=== PATIENT | female | born 1945 | race Caucasian/White ===

== ENCOUNTER → 2019-10-21 | Outpatient (CLI) | payer MEDICARE ==
[2019-10-22 15:09] LABS: Adenovirus F 40/41 Not Detected (NOT DETECT); Astrovirus Not Detected (NOT DETECT); Campylobacter Sp Not Detected (NOT DETECT); Cryptosporidium Not Detected (NOT DETECT); Cyclospora Cayetanensis Not Detected (NOT DETECT); E. Coli O157 Not Detected (NOT DETECT); Entamoeba Histolytica Not Detected (NOT DETECT); Enteroaggregative E. coli-EAEC Not Detected (NOT DETECT); Enteropathogenic E. coli-EPEC Not Detected (NOT DETECT); Enterotoxigenic E. coli-ETEC Not Detected (NOT DETECT); Giardia Lamblia Not Detected (NOT DETECT); Norovirus GI/GII Not Detected (NOT DETECT); Plesiomonas Shigelloides Not Detected (NOT DETECT); Rotavirus A Not Detected (NOT DETECT); Salmonella Sp Not Detected (NOT DETECT); Sapovirus Not Detected (NOT DETECT); Shiga Toxin-prod E. coli-STEC Not Detected (NOT DETECT); Shigella/Enteroin E. coli-EIEC Not Detected (NOT DETECT); Vibrio Cholerae Not Detected (NOT DETECT); Vibrio Sp Not Detected (NOT DETECT); Yersinia Enterocolitica Not Detected (NOT DETECT)
== END | disposition home or self-care (01) ==
LOC: LAB SHORT 19:00 → LAB 19:00 → LAB SHORT 10-22 11:01
PROVIDERS: Nurse Practitioner Family
DX: K52.9 Noninfective gastroenteritis and colitis, unspecified (principal); R10.9 Unspecified abdominal pain
CPT/HCPCS: 0097U

== ENCOUNTER → 2022-10-14 | Outpatient (CLI) | payer MEDICARE | LOC: LAB SHORT 08:45 → LAB 08:45 | DX: R30.0 Dysuria (principal) | CPT/HCPCS: 87086 ==

== ENCOUNTER → 2022-10-18 | Outpatient (CLI) | payer MEDICARE | END | disposition home or self-care (01) | LOC: LAB SHORT 13:50 → LAB 13:50 | DX: N39.0 Urinary tract infection, site not specified (principal) | CPT/HCPCS: 87086 ==

== ENCOUNTER → 2023-02-11 | Outpatient (CLI) | payer MEDICARE ==
[2023-02-11 20:02] LABS: Campylobacter Sp Not Detected (NOT DETECT)
[2023-02-11 20:03] LABS: Adenovirus F 40/41 Not Detected (NOT DETECT); Astrovirus Not Detected (NOT DETECT); Cryptosporidium Not Detected (NOT DETECT); Cyclospora Cayetanensis Not Detected (NOT DETECT); E. Coli O157 Not Detected (NOT DETECT); Entamoeba Histolytica Not Detected (NOT DETECT); Enteroaggregative E. coli-EAEC Not Detected (NOT DETECT); Enteropathogenic E. coli-EPEC Not Detected (NOT DETECT); Enterotoxigenic E. coli-ETEC Not Detected (NOT DETECT); Giardia Lamblia Not Detected (NOT DETECT); Norovirus GI/GII Not Detected (NOT DETECT); Plesiomonas Shigelloides Not Detected (NOT DETECT); Rotavirus A Not Detected (NOT DETECT); Salmonella Sp Not Detected (NOT DETECT); Sapovirus Not Detected (NOT DETECT); Shiga Toxin-prod E. coli-STEC Not Detected (NOT DETECT); Shigella/Enteroin E. coli-EIEC Not Detected (NOT DETECT); Vibrio Cholerae Not Detected (NOT DETECT); Vibrio Sp Not Detected (NOT DETECT); Yersinia Enterocolitica Not Detected (NOT DETECT)
== END ==
LOC: LAB SHORT 12:58 → LAB 12:58 → LAB FUT 02-01 10:25
PROVIDERS: Internal Medicine Gastroenterology
DX: R19.7 Diarrhea, unspecified (principal)
CPT/HCPCS: 87507

== ENCOUNTER 2023-06-04 13:04 | Emergency (ER) | payer MEDICARE ==
[~2023-06-04] VITALS: Ht 167.6 cm; Wt 64.9 kg
[~2023-06-04 13:04] MED LIST: ATOR20 PO; ERGO400 PO; Ginger250 MG PO; Lisinopril-Hct1 EAC4 PO; METF500 PO; OMEP20ER PO; TURMERIC500 M2 PO
[2023-06-04 13:36] LABS: BASOPHILS ABSOLUTE AUTO 0.01 K/mm3 (0.00-0.23); BASOPHILS PERCENT AUTO 0 % (0-2); EOSINOPHILS ABSOLUTE AUTO 0.06 K/mm3 (0.00-0.68); EOSINOPHILS PERCENT AUTO 1 % (0-6); Hematocrit 37.9 % (33.0-51.0); Hemoglobin 13.2 g/dL (11.5-16.0); IMMATURE GRAN ABSOLUTE AUTO 0.04 K/mm3 (0.00-0.10); IMMATURE GRAN PERCENT AUTO 1 % (0-1); LYMPHOCYTES ABSOLUTE AUTO 0.98 K/mm3 (0.84-5.20); LYMPHOCYTES PERCENT AUTO 18 % (21-46); MONOCYTES ABSOLUTE AUTO 0.48 K/mm3 (0.16-1.47); MONOCYTES PERCENT AUTO 9 % (4-13); Mean Corpuscular HGB 31.9 pg (26.0-34.0); Mean Corpuscular HGB Conc 34.8 g/dL (31.5-36.5); Mean Corpuscular Volume 92 fL (80-100); Mean Platelet Volume 9.6 fL (9.1-12.4); NEUTROPHILS ABSOLUTE AUTO 4.01 K/mm3 (1.96-9.15); NEUTROPHILS PERCENT AUTO 72 % (41-73); Platelet Count 251 K/mm3 (150-400); RDW Coefficient Variation 15.2 % (11.7-14.2); RDW Standard Deviation 43.8 fL (35.1-46.3); Red Blood Cell Count 4.14 M/mm3 (3.80-5.20); White Blood Cell Count 5.58 K/mm3 (4.00-11.30)
[2023-06-04 14:19] LABS: Albumin/Globulin Ratio 1.3 (0.8-1.8); Bilirubin, Total 0.9 mg/dL (0.1-1.0); Bun/Creatinine Ratio 16.4 (12.0-20.0); Calcium, Blood 8.1 mg/dL (8.5-10.1); Creatinine, Blood 1.22 mg/dL (0.40-1.00); Potassium, Blood 2.4 mmol/L (3.5-5.5)
[2023-06-04 15:58] LABS: Source, Urine Clean Catch
[2023-06-04 16:02] LABS: Appearance, Urine Hazy (Clear); Bilirubin, Urine Neg (Neg); Blood, Urine Neg (Neg); Color, Urine Yellow (P-Yellow); Glucose Qualitative, Urine Neg (Neg); Ketones, Urine Neg (Neg); Leukocyte Esterase, Urine 2+ (Neg); Nitrite, Urine Neg (Neg); Protein, Urine Neg (Neg); Specific Gravity, Urine 1.015 (1.003-1.022); Urobilinogen, Urine NORM (Normal)
[2023-06-04 17:06] LABS: Bacteria Many /hpf; Mucus Light (0-Heavy); Red Blood Cells, Urine 0-2 /hpf (0-2); Squamous Epithelial Cells Rare /hpf (Few); Transitional Epithelial Cells Few /hpf (0-Rare); White Blood Cells, Urine 25-50 /hpf (0-5)
[2023-06-04 18:34] VITALS: BP 128/63
[2023-06-04] MEDS ORDERED: Bactrim Ds Tab1 EACH PO (19:06)
[2023-06-04 19:33] LABS: Magnesium, Blood 1.4 mg/dL (1.6-2.4)
== END 2023-06-04 20:43 | disposition home or self-care (01) ==
LOC: ER 13:04
PROVIDERS: Physician Assistant; Student in an Organized Health Care Education/Training Program
DX: E87.6 Hypokalemia (principal); E83.42 Hypomagnesemia; N39.0 Urinary tract infection, site not specified; C20 Malignant neoplasm of rectum; Z79.84 Long term (current) use of oral hypoglycemic drugs; Z79.899 Other long term (current) drug therapy
CPT/HCPCS: 70450; 80053; 81001; 83735; 84132; 84484; 85025; 87086; 93005; 93010; 96365; 96366; 96367; 96368; 99284-25; J0696; J3475; J3480; J7030; J7050

== ENCOUNTER 2023-06-13 19:17 | Observation (INO) | payer MEDICARE ==
[~2023-06-13] VITALS: Ht 167.6 cm; Wt 62.5 kg
[~2023-06-13 19:17] MED LIST changes: +Bactrim Ds Tab1 EACH PO
[2023-06-13] MEDS ORDERED: ONDA8 PO (20:09)
[2023-06-13 20:27] LABS: BASOPHILS ABSOLUTE AUTO 0.01 K/mm3 (0.00-0.23); BASOPHILS PERCENT AUTO 0 % (0-2); EOSINOPHILS PERCENT AUTO 0 % (0-6); Hemoglobin 12.6 g/dL (11.5-16.0); IMMATURE GRAN ABSOLUTE AUTO 0.04 K/mm3 (0.00-0.10); IMMATURE GRAN PERCENT AUTO 1 % (0-1); LYMPHOCYTES ABSOLUTE AUTO 0.24 K/mm3 (0.84-5.20); LYMPHOCYTES PERCENT AUTO 6 % (21-46); MONOCYTES ABSOLUTE AUTO 0.32 K/mm3 (0.16-1.47); MONOCYTES PERCENT AUTO 8 % (4-13); Mean Corpuscular HGB 33.1 pg (26.0-34.0); Mean Corpuscular Volume 92 fL (80-100); Mean Platelet Volume 9.3 fL (9.1-12.4); NEUTROPHILS ABSOLUTE AUTO 3.37 K/mm3 (1.96-9.15); NEUTROPHILS PERCENT AUTO 85 % (41-73); Platelet Count 216 K/mm3 (150-400); RDW Coefficient Variation 16.8 % (11.7-14.2); RDW Standard Deviation 47.7 fL (35.1-46.3); Red Blood Cell Count 3.81 M/mm3 (3.80-5.20); White Blood Cell Count 3.98 K/mm3 (4.00-11.30)
[2023-06-13 20:51] LABS: Albumin, Blood 2.9 g/dL (3.4-5.0); Bilirubin, Total 1.1 mg/dL (0.1-1.0); Bun/Creatinine Ratio 20.3 (12.0-20.0); Calcium, Blood 9.7 mg/dL (8.5-10.1); Creatinine, Blood 1.28 mg/dL (0.40-1.00); Globulin, Blood 2.9 g/dL (2.2-4.0); Magnesium, Blood 1.5 mg/dL (1.6-2.4); Potassium, Blood 3.6 mmol/L (3.5-5.5); Total Protein, Blood 5.8 g/dL (6.4-8.2)
[2023-06-13 21:02] LABS: Influenza A, PCR NEGATIVE (NEGATIVE); Influenza B, PCR NEGATIVE (NEGATIVE); Resp Syncytial Virus, PCR NEGATIVE (NEGATIVE); SARS-Cov-2 (COVID-19) PCR, MMC NEGATIVE (NEGATIVE)
[2023-06-14 01:48] VITALS: BP 146/91
[2023-06-14 05:37] LABS: Hematocrit 29.6 % (33.0-51.0); Hemoglobin 10.4 g/dL (11.5-16.0); Mean Corpuscular HGB 32.9 pg (26.0-34.0); Mean Corpuscular HGB Conc 35.1 g/dL (31.5-36.5); Mean Corpuscular Volume 94 fL (80-100); Mean Platelet Volume 9.5 fL (9.1-12.4); Platelet Count 178 K/mm3 (150-400); RDW Coefficient Variation 17.1 % (11.7-14.2); RDW Standard Deviation 50.1 fL (35.1-46.3); Red Blood Cell Count 3.16 M/mm3 (3.80-5.20); White Blood Cell Count 2.83 K/mm3 (4.00-11.30)
[2023-06-14 06:39] LABS: Bun/Creatinine Ratio 19.6 (12.0-20.0); Calcium, Blood 8.1 mg/dL (8.5-10.1); Creatinine, Blood 1.02 mg/dL (0.40-1.00); Magnesium, Blood 2.3 mg/dL (1.6-2.4)
--- NOTE | 2023-06-14 06:41 | NUR ---
Shift Summary Pt came to the ED d/t N/V, admitted for dx QT elongation. Pt has had nausea since arriving to this unit. No chest pain and no event calls from telemetry. Pt is AOx4 and a 1 SBA w/ no history of falls. Pt recieved 1 bag of magnesium in ED and 1 more bag earlier this AM on this unit.
[2023-06-14 06:48] LABS: BASOPHILS PERCENT MAN 0 % (0-2); EOSINOPHILS PERCENT MAN 0 % (0-6); LYMPHOCYTES ABSOLUTE MAN 0.33 K/mm3 (0.84-5.20); LYMPHOCYTES PERCENT MAN 12 % (21-46); MONOCYTES ABSOLUTE MAN 0.25 K/mm3 (0.16-1.47); MONOCYTES PERCENT MAN 9 % (4-13); NEUTROPHILS ABSOLUTE MAN 2.23 K/mm3 (1.96-9.15); SEG NEUTROPHILS PERCENT MAN 79 % (41-73); TOTAL CELLS COUNTED 100
[2023-06-14 08:10] VITALS: BP 138/69
[2023-06-14 14:27] VITALS: BP 143/68
--- NOTE | 2023-06-14 16:01 | NUR ---
SHIFT SUMMARY: CESAR IS A&OX4. VSS, NO ACUTE EVENTS THIS SHIFT. PT WAS FREE FROM NAUSEA AT THE BEGINNING OF THE SHIFT AND TOLERATED BREAKFAST WELL, BUT HAS REPORTED NAUSEA THIS AFTERNOON. DISCUSSED WITH HOSPITALIST, MEDICATED PER MAR. PT IS INDEPENDENT IN THE ROOM, USUALLY EMPTIES HER OSTOMY INDEPENDENTLY, POWERGLIDE TO RODRIGO PATENT. PT DOES HAVE A MEDIPORT WHICH IS NOT ACCESSED. PT IS CONTINENT OF BLADDER. SHE IS LYING IN BED WITH THE CALL LIGHT IN REACH. REPORT WAS GIVEN TO RN ASSUMING CARE.
--- NOTE | 2023-06-14 16:21 | NUR ---
RECEIVED REPORT FROM CHANDLER BETTS. ASSUMED CARE OF PT TIL END OF SHIFT.
[2023-06-14 18:56] LABS: Bun/Creatinine Ratio 19.8 (12.0-20.0); Calcium, Blood 7.7 mg/dL (8.5-10.1); Creatinine, Blood 0.86 mg/dL (0.40-1.00); Potassium, Blood 3.4 mmol/L (3.5-5.5)
[2023-06-14 19:46] VITALS: BP 113/62
[2023-06-15 03:52] VITALS: BP 112/70
[2023-06-15 07:18] LABS: BASOPHILS PERCENT AUTO 0 % (0-2); EOSINOPHILS PERCENT AUTO 3 % (0-6); Hemoglobin 10.5 g/dL (11.5-16.0); IMMATURE GRAN ABSOLUTE AUTO 0.03 K/mm3 (0.00-0.10); IMMATURE GRAN PERCENT AUTO 1 % (0-1); LYMPHOCYTES ABSOLUTE AUTO 0.29 K/mm3 (0.84-5.20); LYMPHOCYTES PERCENT AUTO 8 % (21-46); MONOCYTES ABSOLUTE AUTO 0.41 K/mm3 (0.16-1.47); MONOCYTES PERCENT AUTO 11 % (4-13); Mean Corpuscular HGB 32.9 pg (26.0-34.0); Mean Corpuscular Volume 94 fL (80-100); Mean Platelet Volume 9.5 fL (9.1-12.4); NEUTROPHILS ABSOLUTE AUTO 3.01 K/mm3 (1.96-9.15); NEUTROPHILS PERCENT AUTO 78 % (41-73); Platelet Count 185 K/mm3 (150-400); RDW Coefficient Variation 17.1 % (11.7-14.2); RDW Standard Deviation 49.4 fL (35.1-46.3); Red Blood Cell Count 3.19 M/mm3 (3.80-5.20); White Blood Cell Count 3.84 K/mm3 (4.00-11.30)
--- NOTE | 2023-06-15 07:29 | NUR ---
Shift Summary Pt had been feeling nauteous all day after eating breakfast. She stated that one dose of Marinol she recieved and the 0.5mg IV ativan she recieved did not help. I gave her 1 MG IV Ativan for nausea at 2330 which allowed her to sleep until morning, and when she woke up she stated her nausea was gone. Ostomy emptied PRN, AOx4, 1 SBA.
[2023-06-15 07:35] LABS: Albumin, Blood 2.1 g/dL (3.4-5.0); Bilirubin, Total 0.9 mg/dL (0.1-1.0); Bun/Creatinine Ratio 18.9 (12.0-20.0); Calcium, Blood 7.8 mg/dL (8.5-10.1); Creatinine, Blood 0.9 mg/dL (0.40-1.00); Globulin, Blood 2.1 g/dL (2.2-4.0); Potassium, Blood 3.6 mmol/L (3.5-5.5); Total Protein, Blood 4.2 g/dL (6.4-8.2)
[2023-06-15 07:39] VITALS: BP 119/64
[2023-06-15] MEDS ORDERED: Prinivil10 MG PO (12:51)
--- NOTE | 2023-06-15 13:47 | NUR ---
SHIFT/DISCHARGE SUMMARY: PATIENT A/OX4. ANSWER TO QUESTIONS APPROPRIATELY AND ABLE TO MAKE NEEDS KNOWN. PATIENT DENIES CP/PRESSURE, SOB, N/V DIZZINESS AND GENERALIZED PAIN. PATIENT ON TELE, SR HR IN THE 80'S BPM c OCCASIONAL PVC. PATIENT RECEIVED OT DOSE OF MAG SULFATE AND SCHEDULED MEDS PER EMAR. BS 153 BEFORE BREAKFAST AND 208 BEFORE LUNCH, RECEIVED INSULIN COVERAGE PER EMAR. PATIENT CONTINENCE OF BLADDER, AMBULATES TO BATHROOM c SBA/FWW. CHRONIC COLOSTOMY, DRAINING LIQUID BROWN STOOL AND COLOSTOMY APPLIANCE WAS CHANGED THIS AM. VITAL SIGNS REVIEWED. POWERGLIDE TO RODRIGO HONG'D. PATIENT DISCHARGE HOME. DISCHARGE INSTRUCTIONS PACKET GIVEN TO PATIENT. EDUCATE PATIENT AND SPOUSE AT BEDSIDE REGARDING ADMITTING DX'S OF PROLONG QT INTERVAL, S/S, TX, MEDICATIONS, SELF CARE, AND TO FOLLOW c DR. WALDROP (ONCOLOGIST) WELL HER PCP. PATIENT/SPOUSE VERBALIZED UNDERSTANDING AND NO FURTHER QUESTIONS. RX WAS FAXED TO PATIENT PREFERRED [facility]ARMAC[facility] ([facility] ALL PATIENT PERSONAL BELONGINGS WERE SENT HOME c THE PATIENT. PATIENT LEFT THE ROOM AT 1342 AND WAS TRANSPORTED VIA WHEELCHAIR BY [facility] TO PATIENT ENTRANCE.
== END 2023-06-15 13:40 | disposition home or self-care (01) ==
LOC: ER 19:17 → MEDS 19:18 → ERHOLD 19:18 → MEDS 06-14 01:43
PROVIDERS: Student in an Organized Health Care Education/Training Program; ADMIT Internal Medicine
DX: I45.81 Long QT syndrome (principal); R11.2 Nausea with vomiting, unspecified; E83.42 Hypomagnesemia; E87.6 Hypokalemia; C18.9 Malignant neoplasm of colon, unspecified; Z11.52 Encounter for screening for COVID-19; I10 Essential (primary) hypertension; E11.9 Type 2 diabetes mellitus without complications; K52.9 Noninfective gastroenteritis and colitis, unspecified; D72.819 Decreased white blood cell count, unspecified; Z66 Do not resuscitate; Z79.84 Long term (current) use of oral hypoglycemic drugs; Z79.899 Other long term (current) drug therapy; Z90.49 Acquired absence of other specified parts of digestive tract
CPT/HCPCS: 0241U; 36415; 74176; 80048; 80053; 82330; 82947; 83690; 83735; 84100; 84443; 85025; 93005; 93010; 96361; 96365; 96366; 96367; 96372; 96375; 96376; 99285-25; A9270; C1751; G0378; J1642; J1650; J1790; J2060; J2765; J3475; J3480; J7030; Q0167

== ENCOUNTER → 2023-06-20 | Outpatient (CLI) | payer MEDICARE ==
[~2023-06-20] MED LIST changes: +ONDA8 PO; +Prinivil10 MG PO
== END | disposition home or self-care (01) ==
LOC: LAB 14:45 → LAB SHORT 14:45
DX: E83.42 Hypomagnesemia (principal); R11.10 Vomiting, unspecified
CPT/HCPCS: 83735

== ENCOUNTER 2023-07-04 18:50 | Inpatient (IN) | payer MEDICARE ==
[~2023-07-04] VITALS: Ht 157.5 cm; Wt 64.2 kg
[2023-07-04 19:25] LABS: PO2 Arterial 367 mmHg (80-100); pH Blood Arterial 7.47 (7.35-7.45)
[2023-07-04 19:26] LABS: BASOPHILS ABSOLUTE AUTO 0.06 K/mm3 (0.00-0.23); BASOPHILS PERCENT AUTO 1 % (0-2); EOSINOPHILS PERCENT AUTO 0 % (0-6); Hematocrit 42.2 % (33.0-51.0); Hemoglobin 14.5 g/dL (11.5-16.0); IMMATURE GRAN PERCENT AUTO 1 % (0-1); LYMPHOCYTES ABSOLUTE AUTO 2.37 K/mm3 (0.84-5.20); LYMPHOCYTES PERCENT AUTO 25 % (21-46); MONOCYTES ABSOLUTE AUTO 0.33 K/mm3 (0.16-1.47); MONOCYTES PERCENT AUTO 4 % (4-13); Mean Corpuscular HGB 33.3 pg (26.0-34.0); Mean Corpuscular HGB Conc 34.4 g/dL (31.5-36.5); Mean Corpuscular Volume 97 fL (80-100); Mean Platelet Volume 11.4 fL (9.1-12.4); NEUTROPHILS ABSOLUTE AUTO 6.57 K/mm3 (1.96-9.15); NEUTROPHILS PERCENT AUTO 70 % (41-73); Platelet Count 166 K/mm3 (150-400); RDW Coefficient Variation 18.9 % (11.7-14.2); RDW Standard Deviation 66.5 fL (35.1-46.3); Red Blood Cell Count 4.36 M/mm3 (3.80-5.20); White Blood Cell Count 9.43 K/mm3 (4.00-11.30)
[2023-07-04 19:47] LABS: Alanine Aminotransfer (ALT/SGP 71 U/L (12-78); Albumin, Blood 1.9 g/dL (3.4-5.0); Albumin/Globulin Ratio 0.7 (0.8-1.8); Alk Phos 158 U/L (50-136); Anion Gap 9 mmol/L (6-16); Aspartate Aminotrans (AST/SGOT 61 U/L (12-37); Bilirubin, Total 0.7 mg/dL (0.1-1.0); Blood Urea Nitrogen 19 mg/dL (8-24); Bun/Creatinine Ratio 16.4 (12.0-20.0); CO2, Blood 23 mmol/L (21-32); Calcium, Blood 8.3 mg/dL (8.5-10.1); Chloride, Blood 100 mmol/L (98-108); Creatinine, Blood 1.16 mg/dL (0.40-1.00); Ethanol (Alcohol), Blood, Med <3 mg/dL; Globulin, Blood 2.9 g/dL (2.2-4.0); Glomerular Filtration Rate 48 (60-); Glucose, Blood 256 mg/dL (70-99); Magnesium, Blood 1.5 mg/dL (1.6-2.4); Potassium, Blood 4.3 mmol/L (3.5-5.5); Sodium, Blood 132 mmol/L (136-145); Total Protein, Blood 4.8 g/dL (6.4-8.2)
[2023-07-04 20:41] LABS: Calcium, Ionized (POC) 1.01 mmol/L (1.10-1.46); Chloride (POC) 98 mmol/L (98-108); Creatinine (POC) 1.4 mg/dL (0.6-1.0); Glucose (ISTAT POC) 243 mg/dL (70-99); Hemoglobin (POC) 14.3 g/dL (12.0-16.0); Potassium (POC) 4.3 mmol/L (3.5-5.5); Sodium (POC) 130 mmol/L (135-148); Total CO2 (POC) 22 mmol/L (21-32)
[2023-07-04 20:49] LABS: Source, Urine Foley catheter
[2023-07-04 21:01] LABS: Bilirubin, Urine Neg (Neg); Blood, Urine Neg (Neg); Glucose Qualitative, Urine 2+ (Neg); Ketones, Urine Neg (Neg); Leukocyte Esterase, Urine Neg (Neg); Nitrite, Urine Neg (Neg); Protein, Urine 1+ (Neg); Urobilinogen, Urine NORM (Normal)
[2023-07-04 21:16] LABS: U Amphetamine Screen Not Detected; U Barbituate Screen Not Detected; U Benzodiazapine Screen Not Detected; U Buprenorphine Screen Not Detected; U Cannabinoids Screen Not Detected; U Cocaine Screen Not Detected; U Methadone Screen Not Detected; U Methamphetamine Screen Not Detected; U Opiates Screen Not Detected; U Oxycodone Screen DETECTED; U Phencyclidine Screen Not Detected
[2023-07-04 21:19] LABS: Appearance, Urine Clear (Clear); Color, Urine Yellow (P-Yellow)
[2023-07-04] MEDS ORDERED: METFORMIN HCL500 M3 PO (21:29)
[2023-07-04] MEDS ORDERED: OXYC10TA19 PO (21:29)
[2023-07-04] MEDS ORDERED: K-Dur20 MEQ PO (21:30)
[2023-07-04 23:00] VITALS: BP 91/49
[2023-07-04 23:15] VITALS: BP 109/60
[2023-07-04 23:30] VITALS: BP 111/60
[2023-07-04 23:45] VITALS: BP 93/61
[2023-07-05] VITALS (87 sets, daily range): BP systolic 65–150; BP diastolic 33–108
--- NOTE | 2023-07-05 01:27 | NUR ---
ARRIVAL TO ICU: RECEIVED REPORT FROM Lauri BETTS. PT ARRIVED TO ICU 08 VIA GURNEY. SLID ACROSS TO ICU BED WITH ASSISTANCE. PT ALERT AND ORIENTED TO TIME, PERSON, PLACE AND SITUATION. ABLE TO ANSWER QUESTIONS AND MAKE NEEDS KNOWN. FOLLOWS COMMANDS. EDUCATION AND TRAINING MANAGER IN PLACE, SR WITH PVC'S. HR 90'S. LEVOPHED INFUSING AT 5 MCG/MIN TITRATED TO MAINTAIN MAP >65. DENIES CHEST PAIN OR PRESSURE. PT ON RA WITH SPO2 >95%. DOWLING IN PLACE, PATENT AND DRAINING TO GRAVITY. COLOSTOMY IN TACT, DRAINING BROWN LIQUID. MEDIPORT ACCESSED, PATENT AND INFUSING. PT BELONGINGS SENT WITH PT. CALL LIGHT IN REACH.
--- NOTE | 2023-07-05 01:49 | NUR ---
UPDATE: UPON ARRIVAL TO ICU, LEFT AC IV INFILTRATED WITH LEVOPHED RUNNING AT 3 MCG/MIN. REGITINE ADMINISTERED THROUGH IV, IV PULLED AND REGITINE ADMINISTERED AROUND SURROUNDING IV SITE.
[2023-07-05 03:42] LABS: BASOPHILS ABSOLUTE AUTO 0.02 K/mm3 (0.00-0.23); BASOPHILS PERCENT AUTO 0 % (0-2); EOSINOPHILS ABSOLUTE AUTO 0.01 K/mm3 (0.00-0.68); EOSINOPHILS PERCENT AUTO 0 % (0-6); Hematocrit 34.9 % (33.0-51.0); Hemoglobin 12.1 g/dL (11.5-16.0); IMMATURE GRAN PERCENT AUTO 2 % (0-1); LYMPHOCYTES ABSOLUTE AUTO 1.45 K/mm3 (0.84-5.20); LYMPHOCYTES PERCENT AUTO 23 % (21-46); MONOCYTES ABSOLUTE AUTO 0.26 K/mm3 (0.16-1.47); MONOCYTES PERCENT AUTO 4 % (4-13); Mean Corpuscular HGB 33.1 pg (26.0-34.0); Mean Corpuscular HGB Conc 34.7 g/dL (31.5-36.5); Mean Corpuscular Volume 95 fL (80-100); NEUTROPHILS ABSOLUTE AUTO 4.48 K/mm3 (1.96-9.15); NEUTROPHILS PERCENT AUTO 71 % (41-73); RDW Standard Deviation 65.1 fL (35.1-46.3); Red Blood Cell Count 3.66 M/mm3 (3.80-5.20); White Blood Cell Count 6.32 K/mm3 (4.00-11.30)
[2023-07-05 03:45] LABS: Albumin, Blood 1.5 g/dL (3.4-5.0); Albumin/Globulin Ratio 0.7 (0.8-1.8); Bilirubin, Total 0.6 mg/dL (0.1-1.0); Calcium, Blood 7.4 mg/dL (8.5-10.1); Creatinine, Blood 0.93 mg/dL (0.40-1.00); Globulin, Blood 2.1 g/dL (2.2-4.0); Total Protein, Blood 3.6 g/dL (6.4-8.2)
[2023-07-05 04:06] LABS: Mean Platelet Volume 11.1 fL (9.1-12.4)
[2023-07-05 04:35] LABS: Platelet Count 127 K/mm3 (150-400)
--- NOTE | 2023-07-05 06:11 | NUR ---
SHIFT SUMMARY: NO ACUTE EVENTS T/O THE SHIFT. PT REMAINS ALERT AND ORIENTED X4. ABLE TO ANSWER QUESTIONS AND MAKE NEEDS KNOWN. REMAINS ON RA WITH SPO2 >95%. DENIES SOB. SUPERVISOR ELECTRIC IN PLACE, SR WITH FREQUENT PVC'S, HR 90'S. LEVOPHED TITRATED TO MAINTAIN MAP >65. COLOSTOMY INTACT, DRAINING LIQUID BROWN STOOL. DOWLING REMAINS PATENT AND DRAINING TO GRAVITY. PORT TO RIGHT CHEST WALL, PATENT AND INFUSING. POWERGLIDE TO RODRIGO, INFUSING. PT ABLE TO TOLERATE PO INTAKE WELL. NORMAL SALINE INFUSING AT 125 ML/HR. CALL LIGHT IN REACH
--- NOTE | 2023-07-05 07:28 | NUR ---
Assumed care of pt at 0700. Bedside shift report received from Olivia BETTS and Tatianna RN. Pt is alert, lethargic. States she is feeling "so-so". Reports that she is not interested in breakfast. She has had a poor appetite for several weeks and estimates she has lost 20-30 pounds as a result. SpO2 99% room air. HR 91 NSR. BP stable with levophed at 6 mcg/min through mediport.
--- NOTE | 2023-07-05 12:09 | NUR ---
"Spiritual Care | Pt. request Pt. is awake in bed easting apple sauce when she welcomes my visit. Pt. is pleasant, but displays evidence of being weak. Facilitate a short life review and listen with empathy and a calming presence. Pt. verbalizes her francine background in a pentacostal tradition. Consider matters of francine and belief. Pt. displays evidence of engagement, awareness, and trust. Prayed with Pt. Pt. verbalized gratitude for the spiritual care visit and welcomed this coding auditor to return."
--- NOTE | 2023-07-05 17:35 | NUR ---
ANDREW Neuro/Musc: Pt A&O x 4. Answers questions, follows commands, verbalizes needs. Pleasant and cooperative with care. Pupils 3 mm, PERRL. Moves all extremities with equal strength and range of motion. Able to assist with repositions. No OOB activity this shift. According to patient and spouse, patient has not been out of bed for approx 3 weeks. Pt's spouse states "I think she more does not want to get out of bed". Resp: Lungs clear, dim in bases. SpO2 high 90s with room air. No cough. Cardiac: SR per monitor. BP stable with low-dose levophed through mediport. Midodrine started today with goal of reducing levophed requirements. Currently at 2 mcg/min. GI: Poor appetite. Approx 1 L output from colostomy today, Dr Kruger aware. Appliance changed. Liquid brown/green output. ; Good urine output from cosme catheter. Skin: Unchanged from initial assessment.
--- NOTE | 2023-07-05 18:16 | NUR ---
Pt noted to be febrile with temp of 100.5 per cosme temp probe. Pt began shivering and reporting that she feels very cold. Medicated with tylenol per fever. Did not remove blankets as patient was shivering. Temperature did not improve with administration of tylenol and continued to increase as pt shivered. Call placed to Dr Kruger to notify. Orders provided for IV ABX as well as ibuprofen to help with temperature.
--- NOTE | 2023-07-05 20:12 | NUR ---
Upon responding to a call-back, I visited the patient. She shares her concerns about going to [facility] when she dies. We explore her congregation background and I align my prayers and conversation around her fears. Patient voices her struggles with family member's expectations about her getting out of bed and fighting, and so some effort is put forth to empower the patient to follow her own path and make her own decsions. I normalize her experience, reinforce helpful perspectives and provide therapeutic listening, traditional prayers and gentle counselling psychologist. I will continue to remain available.
[2023-07-05 20:40] LABS: Albumin, Blood 1.7 g/dL (3.4-5.0); Albumin/Globulin Ratio 1.1 (0.8-1.8); Bilirubin, Total 0.5 mg/dL (0.1-1.0); Bun/Creatinine Ratio 15.3 (12.0-20.0); Calcium, Blood 6.9 mg/dL (8.5-10.1); Creatinine, Blood 0.72 mg/dL (0.40-1.00); Globulin, Blood 1.5 g/dL (2.2-4.0); Magnesium, Blood 1.7 mg/dL (1.6-2.4); Phosphorus, Blood 1.2 mg/dL (2.5-4.9); Potassium, Blood 3.1 mmol/L (3.5-5.5); Total Protein, Blood 3.2 g/dL (6.4-8.2)
--- NOTE | 2023-07-05 21:41 | NUR ---
ASSUMPTION OF CARE: RECEIVED REPORT FROM JOHN BETTS. PT ALERT AND ORIENTED TO TIME, PERSON, PLACE AND SITUATION. CALM AND COOPERATIVE WITH CARE. ABLE TO ANSWER QUESTIONS AND MAKE NEEDS KNOWN. PT ON 2L NC WITH SPO2 >94%. DENIES SOB. SWEDISH MASSEUSE IN PLACE, SR WITH HR 60'S. LEVOPHED TITRATED TO MAINTAIN MAP >65. 2L BOLUS GIVEN PER DR. MAYFIELD. DOWLING PATENT AND DRAINING TO GRAVITY. COLOSTOMY DRAINING LARGE AMOUNTS OF LIQUID BROWN STOOL. TEMP DOWN TO 99.5. POWERGLIDE TO RODRIGO, SALINE LOCKED. PORT TO RIGHT CHEST WALL, INFUSING. SPIRITUAL CARE CALLED TO BEDSIDE PER PT REQUEST. PT TOLERATING PO INTAKE WELL. CALL LIGHT IN REACH.
[2023-07-06] VITALS (70 sets, daily range): BP systolic 77–141; BP diastolic 45–96
[2023-07-06 01:09] LABS: Adenovirus F 40/41 Not Detected (NOT DETECT); Astrovirus Not Detected (NOT DETECT); Campylobacter Sp Not Detected (NOT DETECT); Cryptosporidium Not Detected (NOT DETECT); Cyclospora Cayetanensis Not Detected (NOT DETECT); E. Coli O157 Not Detected (NOT DETECT); Entamoeba Histolytica Not Detected (NOT DETECT); Enteroaggregative E. coli-EAEC Not Detected (NOT DETECT); Enteropathogenic E. coli-EPEC Not Detected (NOT DETECT); Enterotoxigenic E. coli-ETEC Not Detected (NOT DETECT); Giardia Lamblia Not Detected (NOT DETECT); Norovirus GI/GII Not Detected (NOT DETECT); Plesiomonas Shigelloides Not Detected (NOT DETECT); Rotavirus A Not Detected (NOT DETECT); Salmonella Sp Not Detected (NOT DETECT); Sapovirus Not Detected (NOT DETECT); Shiga Toxin-prod E. coli-STEC Not Detected (NOT DETECT); Shigella/Enteroin E. coli-EIEC Not Detected (NOT DETECT); Vibrio Cholerae Not Detected (NOT DETECT); Vibrio Sp Not Detected (NOT DETECT); Yersinia Enterocolitica Not Detected (NOT DETECT)
[2023-07-06 03:56] LABS: BASOPHILS ABSOLUTE AUTO 0.01 K/mm3 (0.00-0.23); BASOPHILS PERCENT AUTO 0 % (0-2); EOSINOPHILS PERCENT AUTO 0 % (0-6); Hematocrit 29.2 % (33.0-51.0); Hemoglobin 9.6 g/dL (11.5-16.0); IMMATURE GRAN ABSOLUTE AUTO 0.05 K/mm3 (0.00-0.10); IMMATURE GRAN PERCENT AUTO 1 % (0-1); LYMPHOCYTES ABSOLUTE AUTO 0.87 K/mm3 (0.84-5.20); LYMPHOCYTES PERCENT AUTO 17 % (21-46); MONOCYTES ABSOLUTE AUTO 0.16 K/mm3 (0.16-1.47); MONOCYTES PERCENT AUTO 3 % (4-13); Mean Corpuscular HGB 32.8 pg (26.0-34.0); Mean Corpuscular HGB Conc 32.9 g/dL (31.5-36.5); Mean Platelet Volume 10.4 fL (9.1-12.4); NEUTROPHILS ABSOLUTE AUTO 3.91 K/mm3 (1.96-9.15); NEUTROPHILS PERCENT AUTO 78 % (41-73); Platelet Count 121 K/mm3 (150-400); RDW Coefficient Variation 19.6 % (11.7-14.2); RDW Standard Deviation 70.5 fL (35.1-46.3); Red Blood Cell Count 2.93 M/mm3 (3.80-5.20)
[2023-07-06 04:09] LABS: Mean Corpuscular Volume 100 fL (80-100)
[2023-07-06 04:22] LABS: Albumin, Blood 1.6 g/dL (3.4-5.0); Bilirubin, Total 0.5 mg/dL (0.1-1.0); Bun/Creatinine Ratio 11.8 (12.0-20.0); Calcium, Blood 6.8 mg/dL (8.5-10.1); Creatinine, Blood 0.76 mg/dL (0.40-1.00); Globulin, Blood 1.6 g/dL (2.2-4.0); Potassium, Blood 3.5 mmol/L (3.5-5.5); Total Protein, Blood 3.2 g/dL (6.4-8.2)
--- NOTE | 2023-07-06 06:09 | NUR ---
SHIFT SUMMARY: PT REMAINS ALERT AND ORIENTED X4. PLEASANT AND COOPERATIVE WITH CARE, ABLE TO ANSWER QUESTIONS AND MAKE NEEDS KNOWN. PT ON RA WITH SPO2 >95%. LEVOPHED TITRATED TO MAINTAIN MAP >65. 2L BOLUS GIVEN. SWEATBAND DRUMMER IN PLACE, SR WITH FREQUENT PVC'S, HR 70'S. DENIES CHEST PAIN/ PRESSURE. TEMP REMAINS 97.5. DOWLING DRAINING TO GRAVITY. COLOSTOMY DRAINING BROWN LIQUID. TOLERATING PO INTAKE WELL. NORMAL SALINE INFUSING AT 125 ML/HR. PORT TO RIGHT CHEST WALL REMAINS PATENT AND INFUSING. POWERGLIDE TO RODRIGO, SALINE LOCKED. CALL LIGHT IN REACH
--- NOTE | 2023-07-06 12:37 | NUR ---
REASSESSMENT PT HAS BEEN RESTING IN BED THROUGHOUT THE MORNING. LEVOPHED TITRATED OFF AND PT HAS BEEN MAINTAINING MAP RIGHT AROUND 65. WHENS HE SLEPT MAP DROPPED TO AROUND 60, BUT CAME BACK ABOVE 65 ONCE SHE WOKE UP. LUNGS ARE CLEAR, RA, SR. TEMPERATURE SLOWLY INCREASING, CURRENTLY 99.2F. OSTOMY WITH LIQUID, BROWN OUTPUT WHICH PT SAYS IS NORMAL. DOWLING WITH GOOD OUTPUT. PT'S VISITED HER THIS MORNING AND WAS UPDATED.
--- NOTE | 2023-07-06 17:30 | NUR ---
SHIFT SUMMARY PT WAS TITRATED OFF LEVOPHED THIS MORNING AND STAYED OFF UNTIL LATE AFTERNOON WHEN HER MAP DROPPED BELOW 60 AND MAINTAINED THERE. LEVOPHED RESTARTED AT 2MCG/MIN AND MAP IS BACK ABOVE 65. TMAX OF 99.9F. SR WITH RATE IN THE 80S. LUNGS CLEAR, RA. POOR APPETITE, ONLY PICKING AT HER MEALS, BUT DID DRINK A GLUCERNA. OSTOMY WITH BROWN LOOSE/LIQUID STOOL, ABOUT 200-300ML EVERY 2 HOURS. ASSISTING PT WITH TURNS AND ENCOURAGIN HER TO MOVE, BUT PT IS RESISTANT. HER BIGGEST COMPLAINT TODAY WAS OF BEING COLD. BLANKETS KEPT ON PT AND TUCKED IN AROUND HER AND ROOM TEMPERATURE ADJUSTED, BUT PT STATED SHE GOT LITTLE WARMTH FROM IT.
--- NOTE | 2023-07-06 23:18 | NUR ---
ASSUMPTION OF CARE: RECEIVED REPORT FROM TAYLOR Danielle RN. PT ALERT AND ORIENTED TO PERSON, PLACE, TIME AND SITUATION. ABLE TO ANSWER QUESTIONS APPROPRIATELY AND MAKE NEEDS KNOWN. PT ON RA WITH SPO2 >95%. DENIES SOB. MECHANICAL MANAGER IN PLACE, SR WITH HR 70'S. DENIES CHEST PAIN OR PRESSURE. LEVOPHED AT 1 MCG/MIN, TITRATED TO MAINTAIN MAP >65. NORMAL SALINE INFUSING AT 125 ML/HR. MEDIPORT TO RIGHT CHEST WALL, INFUSING. POWERGLIDE TO RODRIGO, SALINE LOCKED. COLOSTOMY BAG PUTTING OUT FORMED/LIQUID STOOLS. DOWLING DRAINING TO GRAVITY. TOLERATING PO INTAKE WELL. CALL LIGHT IN REACH, SEE SHIFT ASSESSMENT FOR FULL ASSESSMENT.
[2023-07-07] VITALS (62 sets, daily range): BP systolic 78–124; BP diastolic 42–93
--- NOTE | 2023-07-07 06:04 | NUR ---
SHIFT SUMMARY: NO ACUTE CHANGES T/O THE NIGHT. PT REMAINS ALERT AND ORIENTED X4. PLEASANT AND COOPERATIVE WITH ALL CARE. PT ABLE TO SLEEP OFF AND ON. REMAINS ON RA WITH SPO2 >95%. DATA WAREHOUSING MANAGER IN PLACE, SR WITH PVC'S, HR 60'S-70'S. LEVOPHED SET TO SB AT APPROX 0400. MAP MAINTAINING >65. DENIES CHEST PAIN OR PRESSURE. DENIES PAIN IN GENERAL. DOWLING DRAINING TO GRAVITY. COLOSTOMY INTACT AND DRAINING SOFT BROWN STOOL. PORT TO RIGHT CHEST WALL, INFUSING NS AT 125 ML/HR. POWERGLIDE TO RODRIGO, SALINE LOCKED. CALL LIGHT IN REACH.
[2023-07-07 08:17] LABS: Bun/Creatinine Ratio 7.8 (12.0-20.0); Calcium, Blood 6.6 mg/dL (8.5-10.1); Creatinine, Blood 0.64 mg/dL (0.40-1.00); Potassium, Blood 3.2 mmol/L (3.5-5.5)
--- NOTE | 2023-07-07 12:14 | NUR ---
REASSESSMENT PT HAS REMAINED OFF OF THE LEVOPHED THIS MORNING AND TMAX WAS 99.6F. SHE GOT UP TO THE CHAIR AND IS SITTING UP EATING LUNCH CURRENTLY, BUT WANTS TO GO BACK TO BED AFTER. ORDERS FOR PHYSICAL THERAPY EVAL PLACED PER DR. CHAVEZ. LUNGS REMAIN CLEAR, SPO2 99% ON RA. SR WITH RATE IN THE 90S. STILL POOR APPETITE, BUT ATTEMPTING TO EAT MORE THAN YESTERDAY. OSTOMY CONTINUES WITH LIQUID OUTPUT. POTASSIUM REPLACED PER DR. CHAVEZ'S ORDERS. PT'S AT THE BEDSIDE THIS AM AND WAS UPDATED BY DR. CHAVEZ.
--- NOTE | 2023-07-07 14:47 | NUR ---
"Spiritual Care | Nurse Request While production control analyst back waiting for the family of another Pt. Nurse Sandra Jordan requested this washing machine loader and puller visit this Pt. Pt. is resting in bed but responds when I enter the room. Pt. is pleasant. Pt. verbalized an expectation to be moved to another room, and then likely rehab. Listened witrh empathy and normalized the Pt. expereince. Pt. displays evidence of awareness, engagement, and motivation to pursue rehab so that she can return to her home. Prayed with Pt. Pt. verbalized gratituce for the spiritual care visit."
--- NOTE | 2023-07-07 17:19 | NUR ---
SHIFT SUMMARY PT HAS REMAINED OFF OF THE LEVOPHED THROUGHOUT THE DAY. SHE GOT UP TO THE CHAIR TWICE AND WORKED WITH PHYSICAL THERAPY. SHE DENIES ANY DIZZINESS WHEN MOVING AROUND. LUNGS REMAIN CLEAR, RA. SR. STILL POOR APPETITE, BUT PT HAS DRANK A GLUCERNA WITH EACH MEAL. DOWLING WITH A LITTLE OVER 300ML OF URINE OUT FOR THIS SHIFT. DISCUSSED WITH DR. CHAVEZ WHO SAID IT WAS STILL OK TO REMOVE. WILL REMOVE IT AFTER DINNER. PT'S AND SON SPENT SEVERAL HOURS AT THE BEDSIDE TODAY. CONTINUING TO MONITOR.
--- NOTE | 2023-07-07 21:56 | NUR ---
ASSUMED CARE OF PT AT 191 BEDSIDE REPORT RECEIVED FROM ROXANE VAZQUEZ. PT IS A/O, PLEASANT AND COOPERATIVE. RESTING IN BED AFTER BEING UP IN THE CHAIR TODAY. PT DENIES ANY PAIN OR DISCOMFORT. A FIB, BP STABLE. LEVOPHED OFF SINCE 399. O2 SATS 100% ON ROOM AIR, LUNGS CTA THROUGHOUT. DENIES NAUSEA, APPETITE NOT GREAT BUT DRINKING A GLUCERNA SHAKE WITH EVERY MEAL. COLOSTOMY OUTPUT INCREASED, CONTINUES TO BE LIQUID WITH SMALL AMOUNTS OF UNDIGESTED FOOD. DOWLING D/C'D ON PREVIOUS SHIFT, NO UO SINCE, PT DENIES URGE TO URINATE. PUREWICK PLACED, PT AGREES TO CALL RN IF ANY FEELINGS OF URGENCY OR FULL BLADDER. SKIN INTACT, EXTREMETIES COOL, PT STATES HER HANDS ARE ALWAYS COLD. NO FEVER AT THIS TIME. WARM BLANKETS APPLIED. MEDIPORT ACCESSED, DOES NOT WITHDRAW BLOOD PER REPORT BUT PLACEMENT VERIFIED WITH CXR AND MD ROSS'D USE. PG IN PLACE, INFUSING, DOES NOT WITHDRAW BLOOD. NO FAMILY AT BEDSIDE. POC ONGOING
[2023-07-08] VITALS (16 sets, daily range): BP systolic 91–138; BP diastolic 45–98
[2023-07-08 03:46] LABS: Hematocrit 32.8 % (33.0-51.0); Hemoglobin 10.8 g/dL (11.5-16.0); Mean Corpuscular HGB 32.3 pg (26.0-34.0); Mean Corpuscular HGB Conc 32.9 g/dL (31.5-36.5); Mean Corpuscular Volume 98 fL (80-100); Mean Platelet Volume 10.3 fL (9.1-12.4); Platelet Count 125 K/mm3 (150-400); RDW Coefficient Variation 19.9 % (11.7-14.2); RDW Standard Deviation 71.4 fL (35.1-46.3); Red Blood Cell Count 3.34 M/mm3 (3.80-5.20)
[2023-07-08 04:10] LABS: Albumin, Blood 1.4 g/dL (3.4-5.0); Anion Gap 6 mmol/L (6-16); Blood Urea Nitrogen 7 mg/dL (8-24); Bun/Creatinine Ratio 9.3 (12.0-20.0); CO2, Blood 20 mmol/L (21-32); Calcium, Blood 7.1 mg/dL (8.5-10.1); Chloride, Blood 117 mmol/L (98-108); Creatinine, Blood 0.75 mg/dL (0.40-1.00); Glomerular Filtration Rate 81 (60-); Glucose, Blood 152 mg/dL (70-99); Magnesium, Blood 1.4 mg/dL (1.6-2.4); Phosphorus, Blood 1.9 mg/dL (2.5-4.9); Potassium, Blood 3.5 mmol/L (3.5-5.5); Sodium, Blood 143 mmol/L (136-145)
--- NOTE | 2023-07-08 06:55 | NUR ---
SHIFT SUMMARY PT SLEPT MOST OF THE SHIFT. WAKES EASILY, ORIENTED AND PLEASANT. SR, BP WNL. LEVOPHED REMAINED OFF. O2 SAT 100% ON ROOM AIR. LUNGS CTA. DENIES NAUSEA, COLOSTOMY OUTPUT 550 LIQUID BROWN. DRANK WATER WITHOUT ISSUES. PUREWICK IN PLACE THROUGHOUT SHIFT, NO URINE OUTPUT. BLADDER SCAN AT 0400 REVEALED 245 ML IN BLADDER. PT DOES NOT WANT IN AND OUT CATH. OOB TO BSC WITH 1 PERSON ASSIST, 400 ML YELLOW URINE VOIDED. PT BACK TO BED WITH 1 PERSON ASSIST AND WALKER. SKIN UNCHANGED. MEDIPORT ACCESSED AND PG INFUSING. NEITHER WITHDRAW BLOOD. NO FAMILY AT BEDSIDE, NO CALLS FOR UPDATES. PT HOPES TO BE ABLE TO LEAVE ICU TODAY. POC ONGOING.
--- NOTE | 2023-07-08 10:43 | NUR ---
IN AFTER BREAKFAST, DISCUSSED WITH PATIENT NEED TO CHANGE SOME MEDICATIONS R/T THE MALABSORPTION WITH THE OSTOMY. PT HAS NOTED FULL SIZE PILLS WHILE EMPTYING. SHE STATES THAT SHE NEEDS HELP FROM HER , SO ENCOURAGED TO LEARN SHE GOES. ENCOURAGED TO STATUS CHANGE TO PCU THIS AM. PT IS ENCOURAGED TO TRY TO GET OUT OF ICU. PT CONCERNED ABOUT LIVING IN AN RV AND HER MOBILITY ISSUES. DISCUSSION WITH PT AND FAMILY ABOUT A REHAB OPTION UPON DISCHARGE TO REGAIN SOME STRENGTH.
--- NOTE | 2023-07-08 11:38 | NUR ---
PT REQUESTS ADDITIONAL GLUCERNA, SHE DRINKS IT RATHER QUICKLY. BLOOD SUGAR IS REMAIN 150 AND BELOW. SHE STATES SHE USES [facility] AT HOME. AND SON WERE IN FOR A VISIT, BROUGHT A BREAKFAST SANDWICH, SHE TOOK IN A COUPLE OF BITES.
--- NOTE | 2023-07-08 12:32 | NUR ---
EMPTIED PT'S OSTOMY OF 300 BROWN LIQUID, PT ASKED FOR ANOTHER CHOCOLATE GLUCERNA. WANTS TO TAKE A SHOWER BUT WANTED TO NAP FIRST. REPORT HAS BEEN CALLED TO SHELBIE FERRARI RN IN PCU. PT IS NAPPING, WILL GATHER HER BELONGINGS AND TAKE HER OVER WHEN SHE ROUSES.
--- NOTE | 2023-07-08 13:39 | NUR ---
PT TRANSFERRED TO ROOM PCU 13 VIA WHEELCHAIR, PT WAS SBA ONLY. NOTED TO HAVE A BRUISE ACROSS THE FOLD OF THE LEFT RIB/SCAPULA, DENIED PAIN WHEN TOUCHED. CARE TURNED OVER TO ROXANE PRINCE WHO WAS COVERING.
--- NOTE | 2023-07-08 15:04 | NUR ---
Patient javier tells me about her medical improvements, the peace she has felt since our conversation and prayer last Saturday evening and the news that she will transfer to a SNF as soon as she is stabilized medically. She talks about her sister, her spouse, Vijay, and her son who is down visiting from [place], [place]. We discuss a spiritual care plan and I provide her with a Bible because she voices that she would like to lean harder into francine from the Denominational ideology. We revisit the issues centered around her desires to please family members rather then her own medical wishes. She admits that because of how she was feeling and the constant setbacks that she was wanting to quit all medical efforts but now that she is feeling better and has promise of some quality of life, she is more hopeful and more eager to stay in the fight and do what must be done to improve her condition. I normalize her experience, reinforce helpful attitudes and practices and provide therapeutic listening, theological insights and prayer. Patient responded well and showed signs of an greater peace and drive. I will continue to remain available to patient and family.
--- NOTE | 2023-07-08 18:10 | NUR ---
shift summary Pt was transferred from ICU this afternoon. Pt pleasant, a&ox4. sp02>90% on ra. Telemetry shows nsr, hr mostly 80's, vss. up to bsc to void. ostomy emptied x2 this afternoon. poor appetite, could tolerate chocolate ensure. Able to work with PT this afternoon. fluids and abx infused per emar. and son visited this evening. Pastoral care in room for visit as well. Pt currently napping in bed. Call light in reach.
[2023-07-09 01:35] VITALS: BP 118/62
[2023-07-09 05:09] VITALS: BP 121/64
[2023-07-09 06:03] LABS: Bun/Creatinine Ratio 10.5 (12.0-20.0); Calcium, Blood 6.8 mg/dL (8.5-10.1); Creatinine, Blood 0.67 mg/dL (0.40-1.00); Magnesium, Blood 1.5 mg/dL (1.6-2.4); Potassium, Blood 2.7 mmol/L (3.5-5.5)
--- NOTE | 2023-07-09 06:03 | NUR ---
END OF SHIFT NOTE. PT HAS RESTED WELL OVERNIGHT. SOME COMPLAINTS OF DISCOMFORT WHICH WAS RESOLVED WITH REPOSITIONING. PT CONTINUES TO HAVE LIQUID STOOLS VIA OSTOMY, PT BELIEVES IT MIGHT BE GETTING A LITTLE THICKER. MINIMAL PO INTAKE OVERNIGHT. PT IS ABLE TO MAKE NEEDS KNOWN, CALL LIGHT IS WITHIN REACH.
[2023-07-09 08:08] VITALS: BP 109/62
[2023-07-09 15:28] LABS: Magnesium, Blood 1.9 mg/dL (1.6-2.4); Potassium, Blood 3.5 mmol/L (3.5-5.5)
--- NOTE | 2023-07-09 17:39 | NUR ---
Shift summary Pt a&ox4. sp02>90% on ra. Telemetry d/c'd this shift, changed to med, no tele. Ostomy emptied multiple times. Imodium given per emar, octreotide started per emar q8h. poor appetite, could tolerate chocolate ensure and picked at food. dietary in room this afternoon. Able to work with PT this afternoon. fluids infused to mediport per emar. electrolytes infused per emar. visited this evening. Pt able to take shower with assistance this am. Pt currently up in recliner. Call light in reach.
--- NOTE | 2023-07-09 23:10 | NUR ---
TRANSFER NOTE PT TRANSFERED FROM PCU 13, TO ROOM 333 VIA WHEELCHAIR AT 2114. ON ROOM AIR. ABLE TO TRANSFER WITH X1 ASSIST TO BED. MEDIPORT RUNNING NS. ORIENTED TO ROOM. SKIN CHECK COMPLETED WITH XIOMARA BETTS. DENIES PAIN. JUST REQUESTING WARM BLANKETS. BED IN LOWEST POSITION, CALL LIGHT WITHIN REACH.
[2023-07-10 05:30] VITALS: BP 119/69
[2023-07-10 06:17] LABS: Bun/Creatinine Ratio 8.4 (12.0-20.0); Calcium, Blood 6.9 mg/dL (8.5-10.1); Creatinine, Blood 0.6 mg/dL (0.40-1.00); Magnesium, Blood 1.8 mg/dL (1.6-2.4); Potassium, Blood 3.4 mmol/L (3.5-5.5)
[2023-07-10 07:52] VITALS: BP 129/72
--- NOTE | 2023-07-10 08:27 | NUR ---
SHIFT SUMMARY PT IS A&OX4, VSS ON RA. DENIES PAIN. GENERALIZED 2+ EDEMA. POOR APPETITE. ON A REGULAR DIET. X1 ASSIST TO BSC. LLQ OSTOMY WITH LARGE AMOUNT OF LIQUID BROWNISH-GREEN STOOL. BED IN LOWEST POSITION, CALL LIGHT WITHIN REACH. FIRE SAFETY CHECKS COMPLETED
--- NOTE | 2023-07-10 15:32 | NUR ---
Patient is lying in bed and alert. Her spouse, Vijay is bedside. He tells me about his history of Lymphoma and his current barr with skin cancer. He states that he is having to learn how to cook and clean for the 1st time in his life. Patient shares about her frustration about feeling plateaued. She speaks of the feeling like a guinea pig as far as the different drugs in an attempt to stop the flow of all nuitrition from her body. She explains that she is feeling very weak and wonders if she will want to have treament for cancer ever again, given the toll it has taken on her body. We discuss ideas of risk vs. benefit and quality vs. quantity. I provide therapeutic listening, gentle cruise counselor and and prayer. Patient and Vijay responded well and showed signs of clearer direction.
[2023-07-10 16:28] VITALS: BP 135/69
--- NOTE | 2023-07-10 16:54 | NUR ---
SHIFT SUMMARY- PT IS A/O, PLESANT AND COOPERATIVE. SHE WAS SBA TO THE BSC THIS SHIFT. CHANGED THE APPARATUS ON HER OSTOMY. FAMILY WAS AT BEDSIDE THIS SHIFT. HER APPETITE IS POOR. ENCOURAGED ORAL INTAKE. BLOOD GLUCOSE WAS ELEVATED THIS SHIFT AND REQUIRED COVERAGE. HER BED IS IN THE LOW POSITION AND CALL LIGHT IS WITIN REACH.
[2023-07-10 19:57] VITALS: BP 116/61
--- NOTE | 2023-07-10 21:14 | NUR ---
Patient is a very pleasant man post op day 1 for Lap appy. Patient denies pain at this time. 3 Incisions present to abdomen, surgical glue. No drainage or redness. Patient has active BT. No BM yet. Urine is concentrated, encouraged to drink fluids. Calllight in reach. Has dangled at the bedside.
[2023-07-11 04:30] VITALS: BP 125/64
--- NOTE | 2023-07-11 04:40 | NUR ---
SHIFT SUMMARY: PT IS ADMITTED FOR SHOCK AND IS A DNR. IS ALERT AND ABLE TO MAKE NEEDS KNOWN. ADLs HAVE BEEN 1P FOR MOST THINGS THIS SHIFT. VIOLA PAIN OR DISCOMFORT WHEN ASKED. HAS A MEDIPORT TO THE UPPER LEFT CHEST THAT IS ACCESSED AND IS INFUSING WITH NS @ 75. OSTOMY TO LEFT LOWER ABD IS INTACT. NO ISSUES NOTED WITH STOMA. OSTOMY OUTPUT IS SOFT/LIQUID, BROWN AND IN MODERATE AMOUNT.
[2023-07-11 06:27] LABS: Bun/Creatinine Ratio 7.6 (12.0-20.0); Calcium, Blood 6.8 mg/dL (8.5-10.1); Creatinine, Blood 0.52 mg/dL (0.40-1.00); Magnesium, Blood 1.5 mg/dL (1.6-2.4); Potassium, Blood 3.2 mmol/L (3.5-5.5)
[2023-07-11 09:28] VITALS: BP 105/57
--- NOTE | 2023-07-11 16:22 | NUR ---
Spiritual care visit conducted. Patient expresses concerns about not being heard and valued in her family unit regarding her concerns and medical decisions. I spend quite some time discussing human dignity, value and exploring sources of value and worth. We discuss francine and the family dynamics. I provide teherapetuic listening, gentle equal opportunity counselor, and prayer. PAtient responded well and showed signs of a greater sense of dignity and empowerment.
[2023-07-11 16:38] VITALS: BP 102/58
--- NOTE | 2023-07-11 16:53 | NUR ---
SHIFT SUMMARY- PT IS A/O, PLESANT AND COOPERATIVE. HER APPETITE IS POOR. SHE WORKED WITH PT THIS SHIFT AND IS CURRENTLY UP IN THE CHAIR. SHE IS RECIEVING IV FLUIDS AND ELECTROLYTE REPLACMENT THIS SHIFT. HER OSTOMY IS DRAINING. CALL LIGHT IS WITHIN REACH. FAMILY WAS AT BEDSIDE OFF AND ON THIS SHIFT.
[2023-07-11 20:51] VITALS: BP 125/71
[2023-07-12 02:10] VITALS: BP 103/62
--- NOTE | 2023-07-12 06:01 | NUR ---
SHIFT SUMMARY: PT IS ADMITTED FOR SHOCK AND IS A DNR. SHE IS ALERT AND ABLE TO MAKE NEEDS KNOWN. SHE HAS BEEN A 1P STBY THOUGH SHIFT FOR TRANSFERS AND WALKING TO THE BATHROOM. SHE HAS AN OSTOMY TO THE LOWER LEFT ABD THAT IS PRODUCING MODERATE AMOUNTS OF LOOSE STOOLS. SHE HAS IV ACCESS IN A MEDIPORT IN THE UPPER RIGHT CHEST. IT IS CURRENTLY INFUSIING NS @ 75. DENIES PAIN OR DISCOMFORT WHEN ASKED.
[2023-07-12 06:48] LABS: Magnesium, Blood 1.8 mg/dL (1.6-2.4)
[2023-07-12 06:49] LABS: Bun/Creatinine Ratio 7.8 (12.0-20.0); Calcium, Blood 6.9 mg/dL (8.5-10.1); Creatinine, Blood 0.52 mg/dL (0.40-1.00); Potassium, Blood 4.3 mmol/L (3.5-5.5)
[2023-07-12 07:53] VITALS: BP 124/61
[2023-07-12 16:11] VITALS: BP 119/60
--- NOTE | 2023-07-12 19:15 | NUR ---
SHIFT SUMMARY PATIENT HAD SOME HEARTBURN TODAY AND MEDICATED PER EMAR WITH TUMS FOR SHORT RELIEF. BOWEL IS MIXED CONSISITENCY. BED IN LOW POSITION, CALL LIGHT IN REACH. PATIENT CALLS APPROPRIATELY.
[2023-07-12 20:06] VITALS: BP 125/69
[2023-07-13 03:21] VITALS: BP 127/69
--- NOTE | 2023-07-13 06:38 | NUR ---
SHIFT SUMMARY: PT IS ADMITTED FOR SHOCK AND IS A DNR. IS ALERT AND ABLE TO MAKE NEEDS KNOWN. UP AD-DONY WHILE IN ROOM. DENIES PAIN OR DISCOMFORT WHEN ASKED. MEDIPORT TO UPPER RIGHT CHEST IS CURRENTLY RUNNING NS @ 75. OSTOMY TO LOWER LEFT ABD IS PATENT. IT IS PRODUCING MODERATE AMOUNTS OF LOOSE OATMEAL LIKE STOOL.
[2023-07-13 06:42] LABS: Bun/Creatinine Ratio 10.1 (12.0-20.0); Calcium, Blood 7.2 mg/dL (8.5-10.1); Creatinine, Blood 0.5 mg/dL (0.40-1.00); Magnesium, Blood 1.7 mg/dL (1.6-2.4); Potassium, Blood 3.7 mmol/L (3.5-5.5)
[2023-07-13 08:00] VITALS: BP 128/72
[2023-07-13 15:44] VITALS: BP 111/56
--- NOTE | 2023-07-13 17:09 | NUR ---
SHIFT SUMMARY: PT A&O X4. PLEASANT AND COOPERATIVE WITH CARE. NO ACUTE CHANGES THIS SHIFT. OSTOMY SHOWING FURTHER CONSISTENCY TO STOOL. PT DIET INTAKE REMAINS MINIMAL. PT AFFECT FLAT. STILL REMAINS WEAK. PLAN FOR PT TO D/C TOMORROW TO [facility]. DR. HAYS TO ROOM THIS AFTERNOON TO DISCUSS FURTHER TREATMENT PLAN IN REGARDS TO STOOL/OSTOMY. MEDIPORT REMAINS ACCESSED INFUSING NS @75/HR. CALL LIGHT IN REACH. BED IN LOWEST POSITION.
[2023-07-13 20:36] VITALS: BP 117/67
--- NOTE | 2023-07-14 03:39 | NUR ---
SHIFT SUMMARY NO ACUTE CHANGES TO REPORT OVERNIGHT, PT HAS RESTED T/O THE SHIFT AND HAS DENIED PAIN. OSTOMY WITH LIQUID BROWN STOOL 200 MLS EMPTIED. PT PASSING GAS INTO OSTOMY. PT HAS AMBULATED TO THE [facility] WITH 1 PA, PT REPORTS THAT SHE IS STILL FEELING WEAK. VITALS ARE STABLE. PLAN IS FOR [facility]. BED IN LOWEST POSITION, CALL LIGHT WITHIN REACH.
[2023-07-14 03:51] VITALS: BP 122/63
[2023-07-14 07:41] VITALS: BP 114/59
[2023-07-14 11:32] LABS: SARS-Cov-2 (COVID-19) PCR, MMC NEGATIVE (NEGATIVE)
--- NOTE | 2023-07-14 13:50 | NUR ---
ATTEMPTED TO SET UP TRANSPORT FOR PT TO [facility] THROUGH [email or web address] BUT [facility] STATED THEY DO NOT BILL MEDICARE OR AARP. ATTEMPTED TO SET UP RIDE THROUGH [facility] TO BE BILLED THROUGH [facility], [facility] NEEDED A CALL FROM [employer]YING MACHINE OPERATOR FROM [facility] TO AUTHORIZE TO BILL TRANSPORT TO THEM. I SPOKE TO RADHA AT [facility] AND SHE WAS UNFAMILIAR WITH THIS PROCESS AND ATTEMPTED TO GET IN TOUCH WITH A [employer] DIVER ON HOW TO COMPLETE AUTHORIZATION BUT AT THIS TIME HAS STILL NOT HEARD FROM ANYONE. IF [employer] DIVER RETURNS CALL BEFORE END OF DAY SHE WILL CALL BACK TO AUTHORIZE THE TRANSPORT.
[2023-07-14] MEDS ORDERED: ELIQUIS5 M2 PO (15:18)
[2023-07-14] MEDS ORDERED: BASAGLAR K100 UNIT/1 SC (15:19)
[2023-07-14] MEDS ORDERED: CHOLESTYRAMI239.4 G1 PO (15:19)
[2023-07-14 15:53] VITALS: BP 129/74
--- NOTE | 2023-07-14 17:00 | NUR ---
CALLED DR JEONG- PT HAD VOMITING EARLIER IN THE SHIFT. CALLED AND RECIEVED VERBAL ORDER FOR MM ZOFRAN 4MG Q6P. PT STATED IT WAS NOT MUCH BETTER AFTER THAT. PT BEGAN VOMITING AGAIN AT THIS TIME. WAS CALLED, NOTED PT ON SEVERAL VITAMINS THAT CAN MAKE GERD WORSE. ORDERED DC VITAMINS, DC PEPCID START PROTONIX AND GET A STAT EXG TO R/O IN.
--- NOTE | 2023-07-14 18:36 | NUR ---
Pt in severe pain from nause and gerd spoke with pharmacy and nursing new orders obtained suggest holding vitamins. phsracy suggest aaron befor am meds. Will continue to monitor. When she is better will do advance care planning.
--- NOTE | 2023-07-14 19:51 | NUR ---
SHIFT SUMMARY- PT ALERT AND ORIENTED, S.O. WAS WITH HER MOST OF THE DAY. PLAN WAS TO DC TO [facility] TODAY, THERE WERE ISSUES ARANGING TRANSPORT, SEE PREVIOUS NOTES FOR DETAILS. PT BECAME NAUSEATED AND HAD EMESIS OUT. CALLED MD, HE IS AWARE. EKG COMPLETED AND MD WAS CALLED WITH THE RESULT, PER DR JEONG, OLYA ASHTON WILL COME SEE THE PT. PASSED ON IN REPORT TO NIGHT RN. PT CONTINUES TO BE VERY NAUSEATED. SHE WAS GIVEN PROTONIX BUT SHE STATED 30 MINUTES LATER THAT SHE VOMITED THE MED UP. THIS RN DID NOT VISUALIZE. SPOKE TO DR JEONG ABOUT OTHER MEDS FOR NAUSEA, NO NEW ORDERS. OLYA WILL COME SEE THE PT. NIGHT RN AWARE. BEDSIDE REPORT COMPLETED WITH THE NIGHT RN, PT FINALLY SLEEPING AT THE TIME OF REPORT.
[2023-07-14 20:07] VITALS: BP 146/72
--- NOTE | 2023-07-14 21:44 | NUR ---
ASSUMED CARE OF PT. PT HAD NO IV ACCESS AT START OF SHIFT BUT WAS EXPERIENCING NAUSEA/VOMITING. PO MEDICATIONS ON DAY SHIFT DID NOT HAVE EXPECTED OUTCOMES. PT METAPORT ACCESSED BY ANGIE DENIS USING STERILE TECHNIQUE AND LR BOLUS RUNNING PER PHYSICIAN ORDERS. PT RESTING IN BED, IV REGLAN ADMINISTERED TO TREAT NAUSEA.
[2023-07-15 02:57] VITALS: BP 113/67
--- NOTE | 2023-07-15 04:12 | NUR ---
SHIFT SUMMARY PT A&OX4 AND ANSWERS QUESTIONS APPROPRIATELY. PT WAS SUFFERING FROM NAUSEA/VOMITING AT THE BEGINNING OF MY SHIFT, THIS NURSE CALLED THE PHYSICIAN AND OBTAINED PERMISION TO REACCESS PT METAPORT AND ADMINISTERED REGLAN. PT RESPONDED TO INTERVENTION WELL AND HAD NO MORE EMESIS DURING MY SHIFT. PT RECEIVED 500ML BOLUS OF LR, AFTERWARDS RECEIVED LR AT 125ML/HR PER MD ORDER. PT SLEPT THROUGHOUT SHIFT. VSS. NO ACUTE EVENTS DURING THE SHIFT. PT LEFT IN A POSITION OF SAFETY WITH FALL PRECAUTIONS IN PLACE AND CALL LIGHT IN REACH.
[2023-07-15 06:46] LABS: Albumin, Blood 1.2 g/dL (3.4-5.0); Albumin/Globulin Ratio 0.5 (0.8-1.8); Bilirubin, Total 0.3 mg/dL (0.1-1.0); Bun/Creatinine Ratio 16.9 (12.0-20.0); Calcium, Blood 7.8 mg/dL (8.5-10.1); Creatinine, Blood 0.47 mg/dL (0.40-1.00); Globulin, Blood 2.2 g/dL (2.2-4.0); Potassium, Blood 3.7 mmol/L (3.5-5.5); Total Protein, Blood 3.4 g/dL (6.4-8.2)
[2023-07-15 07:38] VITALS: BP 119/66
--- NOTE | 2023-07-15 13:37 | NUR ---
PT DISCHARGED FROM THE UNIT. [facility] DEACCESSED. [facility] P[facility].
== END 2023-07-15 13:58 | DRG 393 ==
LOC: ER 18:50 → ICUE 18:51 → MEDS 22:43 → ICUE 22:44 → PCU 07-08 13:29 → MEDS 07-09 20:50 → ENPENDDIS 07-15 10:01 → MEDS 07-15 13:58
PROVIDERS: Family Medicine; Internal Medicine; Nurse Practitioner Acute Care; Student in an Organized Health Care Education/Training Program; ADMIT Internal Medicine
PROC: 3E033XZ Introduction of Vasopressor into Peripheral Vein, Percutaneous Approach (ICD-10-PCS; principal; 2023-07-04)
DX: K52.0 Gastroenteritis and colitis due to radiation (principal); R57.1 Hypovolemic shock; C20 Malignant neoplasm of rectum; E87.1 Hypo-osmolality and hyponatremia; N17.9 Acute kidney failure, unspecified; D84.9 Immunodeficiency, unspecified; I24.89 Other forms of acute ischemic heart disease; I48.91 Unspecified atrial fibrillation; Z66 Do not resuscitate; K21.9 Gastro-esophageal reflux disease without esophagitis; E11.9 Type 2 diabetes mellitus without complications; E83.42 Hypomagnesemia; E87.6 Hypokalemia; E86.0 Dehydration; Z79.01 Long term (current) use of anticoagulants; Z90.49 Acquired absence of other specified parts of digestive tract; Z85.72 Personal history of non-Hodgkin lymphomas; Z74.01 Bed confinement status; Z93.3 Colostomy status; Z79.84 Long term (current) use of oral hypoglycemic drugs
CPT/HCPCS: 36415; 36600; 51702; 71260; 80047; 80048; 80053; 80069; 82803; 82947; 83605; 83690; 83735; 83880; 84100; 84132; 84484; 85014; 85025; 85027; 87040; 87507; 92960; 93005; 93010; 93306; 96361-59; 96365-59; 96375-59; 97110; 97116; 97162; 97530; 99152; 99153; 99291-25; 99292; A9270; C1751; J0282; J1642; J1650; J1815; J2060; J2354; J2405; J2543; J2760; J2765; J3370; J3475; J3480; J7030; J7040; J7050; J7060; J7120; P9047; Q9967; U0002